=== PATIENT | female | born 2000 | race Caucasian/White ===

== ENCOUNTER 2021-04-18 22:19 | Emergency (ER) | payer OTHER ==
[~2021-04-18] VITALS: Ht 171 cm; Wt 77.9 kg
--- NOTE | 2021-04-18 22:43 | ED Upper Extremity ---
General Chief Complaint: Upper Extremity Stated Complaint: RIGHT MIDDLE FINGER INJURY Nursing Triage Note: Pt reports she was washing a godinez at work and smashed her right middle finger. Swelling noted. Pt took two Aleve at 2030. Source: patient Exam Limitations: no limitations History of Present Illness Date Seen by Provider: Apr 18, 2021 Time Seen by Provider: 22:21 Initial Comments 20-year-old female with no significant past medical history coming in after she smashed her right middle finger with a mixing bowl at work a couple hours ago. She is having moderate constant throbbing pain in the right middle finger. She took Advil which did help with the pain. She is otherwise denying any other acute complaints. Allergies and Home Medications Allergies Coded Allergies: No Known Drug Allergies (Unverified , 04/18/21) Patient Home Medication List Home Medication List Reviewed: Yes Review of Systems Constitutional: No chills EENTM: no symptoms reported Respiratory: no symptoms reported Cardiovascular: no symptoms reported Gastrointestinal: no symptoms reported Genitourinary: no symptoms reported Musculoskeletal: joint pain Skin: no symptoms reported Psychiatric/Neurological: No Symptoms Reported All Other Systems Reviewed Negative Unless Noted: Yes Past Heqkpqf-Yudpea-Sqdekm Hx Patient Social History Tobacco Use?: Yes Past Medical History Surgeries: No Physical Exam Vital Signs Vital Signs - First Documented 04/18/21 22:32 Temp 36.4 Pulse 78 Resp 17 B/P (MAP) 134/77 (96) Pulse Ox 97 O2 Delivery Room Air Capillary Refill : Less Than 3 Seconds Height, Weight, BMI Height: '" Weight: lbs. oz. kg; 26.00 BMI Method: General Appearance: WD/WN, no apparent distress HEENT: PERRL/EOMI, normal ENT inspection, pharynx normal Neck: non-tender, full range of motion, supple, normal inspection Cardiovascular: regular rate, rhythm, no edema, no murmur Respiratory: chest non-tender, lungs clear, normal breath sounds, no respiratory distress, no accessory muscle use Gastrointestinal: normal bowel sounds, non tender, soft; No distended, No guarding Back: normal inspection Shoulder: normal inspection, non-tender, no evidence of injury Elbow/Forearm: normal inspection, non-tender, no evidence of injury Wrist: Yes normal inspection, Yes non-tender, Yes no evidence of injury Hand: swelling (Right middle finger swollen just distal to the PIP joint with some minimal bruising and tenderness to palpation over that area, normal capillary refill and distal sensation) Neurologic/Tendon: normal sensation, normal motor functions Neurologic/Psychiatric: no motor/sensory deficits, alert, normal mood/affect Skin: normal color, warm/dry Lymphatic: no adenopathy Progress/Results/Core Measures Results/Orders My Orders Orders - PEGGY GARCIA MD Finger(S) (04/18/21 22:37) Vital Signs/I&O 04/18/21 22:32 Temp 36.4 Pulse 78 Resp 17 B/P (MAP) 134/77 (96) Pulse Ox 97 O2 Delivery Room Air Blood Pressure Mean: 96 Progress Progress Note : Progress Note 20-year-old female with above history coming in due to right middle finger pain after smashing it at work a couple hours ago. ABCs were intact, as were stable on presentation. Physical exam with some swelling and bruising to the right distal aspect of her finger just distal to the PIP joint. She does have full range of motion of the finger which is reassuring. She already took ibuprofen which helped with her pain. We will get an x-ray to assess for fracture. On my interpretation I do not see any fracture on x-ray. This is likely just soft tissue swelling and bruising which will improve with time and anti- inflammatories. I believe she is stable for discharge. She was sent home with strict return precautions. Diagnostic Imaging Diagonstic Imaging: Xray Plain Films/CT/US/NM/MRI: other (finger) Comments X-ray right middle finger ordered and interpreted by me showing no fracture, dislocation, or malalignment Departure Impression Primary Impression: Crushed finger Qualified Codes: S67.10XA - Crushing injury of unspecified finger(s), initial encounter Disposition: HOME, SELF-CARE Condition: Stable Departure-Patient Inst. Decision time for Depature: 22:53 Referrals: TED SALDIVAR APRN (PCP/Family) Primary Care Physician Patient Instructions: Crush Injury Add. Discharge Instructions: You were seen in the emergency department after you crushed her finger with a mixing bowl. We do not see anything broken on x-ray and you likely just have some bruising. Continue to take ibuprofen 600 mg every 6 hours as needed for pain. You can also ice it. PEGGY GARCIA MD Apr 18, 2021 22:43
[2021-04-18 22:57] VITALS: BP 134/77
--- NOTE | 2021-04-18 23:59 | Diagnostic Imaging Report ---
EXAM: FINGER(S) INDICATION: Right middle finger injury and pain. COMPARISON: None. FINDINGS: No fracture or malalignment. No radiopaque foreign bodies. IMPRESSION: Negative right 3rd finger radiographs. Dictated by: Dictated on workstation # [id number]
== END 2021-04-18 22:57 | disposition home or self-care (01) ==
LOC: ER FS 22:24
DX: S67.192A Crushing injury of right middle finger, initial encounter (principal); Z72.0 Tobacco use; W23.1XXA Caught, crushed, jammed, or pinched between stationary objects, initial encounter; Y99.0 Civilian activity done for income or pay
CPT/HCPCS: 73140

== ENCOUNTER 2021-06-01 09:27 | Outpatient (CLI) | payer BC ==
[~2021-06-01] VITALS: Ht 172.7 cm; Wt 75.0 kg
[2021-06-01 09:31] VITALS: BP 110/68
[2021-06-01] MEDS ORDERED: diphenhydrAMINE 50 MG/ML INJ (BENADRYL) IV PRN (09:45)
[2021-06-01] MEDS ORDERED: ONDANSETRON 4 MG/2 ML (SDV) Z0FRAN IV PRN (09:45)
[2021-06-01] MEDS ORDERED: EPINEPHrine INJECTION 1 MG/ML AMP IM PRN (09:45)
[2021-06-01] MEDS ORDERED: BAMLANIVIMAB 700 MG/ETESEVIMAB 1,400 MG IN NS IV ONE ×3 (09:45)
[2021-06-01] MEDS ORDERED: ACETAMINOPHEN 500 MG TAB (TYLENOL) PO PRN (09:45)
[2021-06-01 10:11] VITALS: BP 94/55
== END 2021-06-01 10:52 ==
LOC: INFUSION 09:27
PROVIDERS: ATTEND Registered Nurse
DX: U07.1 COVID-19 (principal)

== ENCOUNTER 2021-11-14 18:33 | Emergency (ER) | payer BC ==
[~2021-11-14] VITALS: Ht 172.7 cm; Wt 65.9 kg
[2021-11-14 19:04] LABS: BILIRUBIN,URINE NEGATIVE (NEGATIVE); CLARITY,URINE CLEAR; COLOR,URINE YELLOW; GLUCOSE, URINE (UA) NEGATIVE (NEGATIVE); KETONES,URINE NEGATIVE (NEGATIVE); LEUKOCYTE ESTERASE ,URINE NEGATIVE (NEGATIVE); NITRITE,URINE NEGATIVE (NEGATIVE); PROTEIN,URINE NEGATIVE (NEGATIVE)
--- NOTE | 2021-11-14 19:06 | ED Cardiac General ---
History of Present Illness General Chief Complaint: Cardiac/General Problems Stated Complaint: CP History of Present Illness Date Seen by Provider: Nov 14, 2021 Time Seen by Provider: 18:50 Initial Comments 20-year-old female is here with complaints of left-sided chest pain near her axilla which began today while she was at work at [employer]. Pain is 3/10 and lasted for couple minutes. . No pain in the ER. 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 Denies recent fever or respiratory illness, nausea and vomiting, palpitations, headache, SOB, abdominal pain, dysuria. Patient has a family history of her mother having mitral valve prolapse, and as a child she had a functional heart murmur. Denies using drugs or alcohol and does not smoke. Allergies and Home Medications Allergies Coded Allergies: ketorolac (Unverified Adverse Reaction, Unknown, 11/14/21) ?? patient and mother convinced chest pain started after having Toradol shot a few hours earlier Patient Home Medication List Home Medication List Reviewed: Yes No Active Prescriptions or Reported Meds Review of Systems Review of Systems Constitutional: no symptoms reported EENTM: No Symptoms Reported Respiratory: No Symptoms Reported Cardiovascular: Chest Pain Gastrointestinal: No Symptoms Reported Genitourinary: No Symptoms Reported Musculoskeletal: no symptoms reported Skin: no symptoms reported Psychiatric/Neurological: No Symptoms Reported Endocrine: No Symptoms Reported Hematologic/Lymphatic: No Symptoms Reported Past Lzofuri-Jolvhl-Qndvrj Hx Past Medical History Surgeries: No Physical Exam Vital Signs Capillary Refill : Height, Weight, BMI Height: '" Weight: lbs. oz. kg; 26.00 BMI Method: General Appearance: No Apparent Distress HEENT: PERRL/EOMI Neck: Full Range of Motion, Normal Inspection, Non Tender Respiratory: Chest Non Tender, Lungs Clear, Normal Breath Sounds Cardiovascular: Regular Rate, Rhythm, No Edema, Other (no palpable points of tenderness on chest wall. ) Gastrointestinal: No Organomegaly, No Pulsatile Mass, Non Tender, Soft Extremity: Normal Range of Motion Neurologic/Psychiatric: Alert, Oriented x3, No Motor/Sensory Deficits, Normal Mood/Affect Skin: Normal Color Progress/Results/Core Measures Results/Orders Lab Results Laboratory Tests Test 11/14/21 18:37 11/14/21 19:00 Range/Units Urine Color YELLOW Urine Clarity CLEAR Urine pH 6.0 5-9 Urine Specific [place] >=1.030 1.016-1.022 Urine Protein NEGATIVE NEGATIVE Urine Glucose (UA) NEGATIVE NEGATIVE Urine Ketones NEGATIVE NEGATIVE Urine Nitrite NEGATIVE NEGATIVE Urine Bilirubin NEGATIVE NEGATIVE Urine Urobilinogen 2.0 < = 1.0 MG/DL Urine Leukocyte Esterase NEGATIVE NEGATIVE Urine RBC (Auto) NEGATIVE NEGATIVE Urine RBC NONE /HPF Urine WBC 2-5 /HPF Urine Squamous Epithelial Cells 2-5 /HPF Urine Crystals NONE /LPF Urine Bacteria FEW H /HPF Urine Casts NONE /LPF Urine Mucus SMALL H /LPF Urine Culture Indicated YES Urine Opiates Screen NEGATIVE NEGATIVE Urine Oxycodone Screen NEGATIVE NEGATIVE Urine Methadone Screen NEGATIVE NEGATIVE Urine Propoxyphene Screen NEGATIVE NEGATIVE Urine Barbiturates Screen NEGATIVE NEGATIVE Ur Tricyclic Antidepressants Screen NEGATIVE NEGATIVE Urine Phencyclidine Screen NEGATIVE NEGATIVE Urine Amphetamines Screen NEGATIVE NEGATIVE Urine Methamphetamines Screen NEGATIVE NEGATIVE Urine Benzodiazepines Screen NEGATIVE NEGATIVE Urine Cocaine Screen NEGATIVE NEGATIVE Urine Cannabinoids Screen POSITIVE H NEGATIVE White Blood Count 8.0 4.3-11.0 10^3/uL Red Blood Count 4.26 3.80-5.11 10^6/uL Hemoglobin 11.7 11.5-16.0 g/dL Hematocrit 35 35-52 % Mean Corpuscular Volume 82 80-99 fL Mean Corpuscular Hemoglobin 28 25-34 pg Mean Corpuscular Hemoglobin Concent 33 32-36 g/dL Red Cell Distribution Width 14.0 10.0-14.5 % Platelet Count 264 130-400 10^3/uL Mean Platelet Volume 10.5 9.0-12.2 fL Immature Granulocyte % (Auto) 0 % Neutrophils (%) (Auto) 59 42-75 % Lymphocytes (%) (Auto) 31 12-44 % Monocytes (%) (Auto) 6 0-12 % Eosinophils (%) (Auto) 3 0-10 % Basophils (%) (Auto) 0 0-10 % Neutrophils # (Auto) 4.7 1.8-7.8 10^3/uL Lymphocytes # (Auto) 2.5 1.0-4.0 10^3/uL Monocytes # (Auto) 0.5 0.0-1.0 10^3/uL Eosinophils # (Auto) 0.2 0.0-0.3 10^3/uL Basophils # (Auto) 0.0 0.0-0.1 10^3/uL Immature Granulocyte # (Auto) 0.0 0.0-0.1 10^3/uL Sodium Level 141 135-145 MMOL/L Potassium Level 3.9 3.6-5.0 MMOL/L Chloride Level 104 98-107 MMOL/L Carbon Dioxide Level 25 21-32 MMOL/L Anion Gap 12 5-14 MMOL/L Blood Urea Nitrogen 17 7-18 MG/DL Creatinine 0.84 0.60-1.30 MG/DL Estimat Glomerular Filtration Rate 102 BUN/Creatinine Ratio 20 Glucose Level 92 70-105 MG/DL Calcium Level 9.5 8.5-10.1 MG/DL Corrected Calcium 8.5-10.1 MG/DL Magnesium Level 2.1 1.6-2.4 MG/DL Total Bilirubin 0.3 0.1-1.0 MG/DL Aspartate Amino Transf (AST/SGOT) 11 5-34 U/L Alanine Aminotransferase (ALT/SGPT) 9 0-55 U/L Alkaline Phosphatase 70 40-136 U/L Troponin I < 0.30 <0.30 NG/ML Total Protein 7.3 6.4-8.2 GM/DL Albumin 4.6 H 3.2-4.5 GM/DL Lipase 39 8-78 U/L Serum Test, Qualitative NEGATIVE NEGATIVE Serum Alcohol < 10 <10 MG/DL My Orders Orders - MP MITCHELL MD Ekg Tracing (11/14/21 18:47) Alcohol (11/14/21 18:53) Cbc With Automated Diff (11/14/21 18:53) Comprehensive Metabolic Panel (11/14/21 18:53) Drug Screen Stat (Urine) (11/14/21 18:53) Hcg,Qualitative Serum (11/14/21 18:53) Lipase (11/14/21 18:53) Magnesium (11/14/21 18:53) Ua Culture If Indicated (11/14/21 18:53) Troponin I Fs (11/14/21 18:55) Chest 1 View Ap/Pa Only (11/14/21 19:06) Urine Culture (11/14/21 18:37) Progress Progress Note : Progress Note 1. CHEST PAIN: ACUTE COSTOCHONDRITIS/ MARIJUANA ABUSE - CXR: normal - Troponin/ EKG normal - LAbs normal - UA/ UDS no infection/ Marijuana positive - Follow up with PCP in thenext 3 days - Stay hydrated - Ibuprofen for 7 days . take after eating food. - Stop using marijuana -The patient was seen in the ED, and treated appropriately to presentation at a specific point in time. Patient is informed that there is a possibility that disease and illness can evolve and change in acuity rapidly or slowly after patient is discharged from the ER. Precautionary advice given to the patient for immediate return to ER if symptoms worsen or do not resolve, and to seek emergency care sooner rather than later. Pt also advised on the importance of PCP follow up and compliance with management and follow up plan with PCP and/or specialist, as this is part of the management plan. Pt verbally expressed understanding. Diagnostic Imaging Diagonstic Imaging: Xray Plain Films/CT/US/NM/MRI: chest Departure Impression Primary Impression: Acute costochondritis Additional Impression: Marijuana abuse Disposition: HOME, SELF-CARE Condition: Stable Departure-Patient Inst. Referrals: TED SALDIVAR APRN (PCP/Family) Primary Care Physician Patient Instructions: Costochondritis (DC), Marijuana Use and Addiction Add. Discharge Instructions: - Follow up with PCP in thenext 3 days - Stay hydrated - Ibuprofen for 7 days . take after eating food. - Stop using marijuana All discharge instructions reviewed with patient and/or family. Voiced understanding. Scripts No Active Prescriptions or Reported Meds Work/School Note: Work Release Form Date Seen in the Emergency Department: Nov 14, 2021 Return to Work: Nov 16, 2021 Other Restrictions Listed Below: no heavy lifting for 7 days MP MITCHELL MD Nov 14, 2021 19:06
[2021-11-14 19:09] LABS: BASOPHILS % (AUTO) 0 % (0-10); EOSINOPHILS # (AUTO) 0.2 10^3/uL (0.0-0.3); EOSINOPHILS % (AUTO) 3 % (0-10); HEMATOCRIT 35 % (35-52); HEMOGLOBIN 11.7 g/dL (11.5-16.0); LYMPHOCYTES # (AUTO) 2.5 10^3/uL (1.0-4.0); LYMPHOCYTES % (AUTO) 31 % (12-44); MEAN CORPUSCULAR HEMOGLOBIN 28 pg (25-34); MEAN CORPUSCULAR HGB CONC 33 g/dL (32-36); MEAN CORPUSCULAR VOLUME 82 fL (80-99); MEAN PLATELET VOLUME 10.5 fL (9.0-12.2); MONOCYTES # (AUTO) 0.5 10^3/uL (0.0-1.0); MONOCYTES % (AUTO) 6 % (0-12); NEUTROPHILS # (AUTO) 4.7 10^3/uL (1.8-7.8); NEUTROPHILS % (AUTO) 59 % (42-75); PLATELET COUNT 264 10^3/uL (130-400)
[2021-11-14 19:16] LABS: BACTERIA,URINE FEW /HPF
[2021-11-14 19:18] LABS: AMPHETAMINE SCREEN, URINE NEGATIVE (NEGATIVE); BARBITURATE SCREEN URINE NEGATIVE (NEGATIVE); BENZODIAZEPINES SCREEN URINE NEGATIVE (NEGATIVE); CANNABINOID SCREEN, URINE POSITIVE (NEGATIVE); COCAINE SCREEN URINE NEGATIVE (NEGATIVE); METHADONE STAT NEGATIVE (NEGATIVE); OPIATE SCREEN URINE NEGATIVE (NEGATIVE); OXYCODONE STAT NEGATIVE (NEGATIVE); PROPOXYPHENE STAT NEGATIVE (NEGATIVE); TRICYCLIC ANTIDEPRESSANTS SCRE NEGATIVE (NEGATIVE)
[2021-11-14 19:43] LABS: ALANINE AMINOTRANSFERASE 9 U/L (0-55); ALKALINE PHOSPHATASE 70 U/L (40-136); BILIRUBIN,TOTAL 0.3 MG/DL (0.1-1.0); BUN/CREATININE RATIO 20; CALCIUM 9.5 MG/DL (8.5-10.1); CARBON DIOXIDE 25 MMOL/L (21-32); CHLORIDE 104 MMOL/L (98-107); CREATININE SERUM 0.84 MG/DL (0.60-1.30); GFR ESTIMATED 102; GLUCOSE 92 MG/DL (70-105); MAGNESIUM 2.1 MG/DL (1.6-2.4); POTASSIUM 3.9 MMOL/L (3.6-5.0); SODIUM 141 MMOL/L (135-145)
[2021-11-14 19:44] LABS: ALBUMIN 4.6 GM/DL (3.2-4.5); LIPASE 39 U/L (8-78); TOTAL PROTEIN 7.3 GM/DL (6.4-8.2)
[2021-11-14 19:59] VITALS: BP 105/64
--- NOTE | 2021-11-14 19:59 | Diagnostic Imaging Report ---
CLINICAL INDICATION: Patient with chest pain EXAM: Chest x-ray PA view only. COMPARISON: None. FINDINGS: Lungs/pleura: Lungs are clear. There is no pneumothorax. There is no pleural effusion. Mediastinum: Unremarkable. Pulmonary vasculature: Unremarkable. Heart: Unremarkable. Bones/extrathoracic soft tissue: Unremarkable. IMPRESSION: There is no radiographic evidence of acute cardiopulmonary process. Dictated by: Dictated on workstation # [id number]
== END 2021-11-14 19:59 | disposition home or self-care (01) ==
LOC: EDUNIT# 18:33 → ER FS 18:35
DX: M94.0 Chondrocostal junction syndrome [Tietze] (principal); F12.10 Cannabis abuse, uncomplicated
CPT/HCPCS: 36415; 71045; 80053; 80306; 81000; 83690; 83735; 84484; 84703 ×2; 85025; 87088; 93005; 99284; G0480; 80320

== ENCOUNTER 2021-11-30 16:07 | Emergency (ER) | payer OTHER, BC ==
[~2021-11-30] VITALS: Ht 172 cm; Wt 63.0 kg
[2021-11-30 16:17] VITALS: BP 110/69
--- NOTE | 2021-11-30 16:40 | ED Upper Extremity ---
General Chief Complaint: Laceration Stated Complaint: WC,L MIDDLE FINGER LAC Nursing Triage Note: Patient has ambulated to ER 1 with cc of a laceration on her left hand middle finger. She accidently cut her finger on an open can lid at word about 1545 today. Work sent her to ER for evaluation. Source: patient History of Present Illness Date Seen by Provider: Nov 30, 2021 Time Seen by Provider: 16:11 Initial Comments 21-year-old female presents with laceration to her left middle finger. 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 She has bleeding controlled with pressure. She states she had a tetanus booster within the last 5 to 6 years. She denies any numbness or tingling. She has no other injuries. Location Injury Occurred: [employer] Onset: just prior to arrival Severity: mild Pain/Injury Location: left 3rd finger Method of Injury: incised Modifying Factors: Worse With Movement Allergies and Home Medications Allergies Coded Allergies: ketorolac (Unverified Adverse Reaction, Unknown, 11/14/21) ?? patient and mother convinced chest pain started after having Toradol shot a few hours earlier Patient Home Medication List Home Medication List Reviewed: Yes No Active Prescriptions or Reported Meds Review of Systems Constitutional: No chills, No fever EENTM: no symptoms reported Respiratory: no symptoms reported Cardiovascular: no symptoms reported Gastrointestinal: no symptoms reported Genitourinary: no symptoms reported Musculoskeletal: no symptoms reported Skin: see HPI Psychiatric/Neurological: Denies Numbness, Denies Paresthesia Past Xdelbfk-Cnvgjm-Diokxz Hx Patient Social History Tobacco Use?: No Use of E-Cig and/or Vaping dev: Yes Substance use?: No Alcohol Use?: No Pt feels they are or have been: No Past Medical History Surgery/Hospitalization HX: asthma, heart murmur Surgeries: No Physical Exam Vital Signs Vital Signs - First Documented 11/30/21 16:17 Temp 36.8 Pulse 73 Resp 16 B/P (MAP) 110/69 (83) Pulse Ox 98 O2 Delivery Room Air Capillary Refill : Height, Weight, BMI Height: '" Weight: lbs. oz. kg; 21.00 BMI Method: General Appearance: WD/WN, no apparent distress Cardiovascular: normal peripheral pulses Hand: Left, laceration (Distal phalanx of the left middle finger), soft tissue tenderness (At the site of the laceration) Neurologic/Tendon: normal sensation, normal motor functions Neurologic/Psychiatric: social services manager II-XII nml as tested, no motor/sensory deficits, alert, normal mood/affect, oriented x 3 Skin: normal color, warm/dry Procedures/Interventions Wound Location: Upper Extremities (Left middle finger distal phalanx) Wound Length (cm): 0.5 Wound's Depth, Shape: linear, sub Q Wound Explored: clean Other Closure Supply: Steri Strip 1/2", Mastisol, Wound Adhesive Progress After obtaining verbal consent the wound was cleaned with sterile water and chlorhexidine scrub soap. Bleeding is controlled. Wound edges were approximated using tissue adhesive. Then using Mastisol and 1/2 inch Steri- Strip that was cut half lengthwise to make it more of 1/4 inch Steri-Strip the wound was reinforced with the Steri-Strip. Patient tolerated procedure well without any immediate complication. There was no continued bleeding. Will patient have patient use the finger splint that she presented with as well as a sterile clean dry dressing. Counseled on follow-up and return precautions stressed importance of not using any oily or greasy lotions or substances that would make the glue come off early. No soaking her hand in water. Progress/Results/Core Measures Results/Orders Vital Signs/I&O 11/30/21 16:17 Temp 36.8 Pulse 73 Resp 16 B/P (MAP) 110/69 (83) Pulse Ox 98 O2 Delivery Room Air Blood Pressure Mean: 83 Progress Progress Note : Progress Note Wound edges were approximated using tissue adhesive and a Steri-Strip reinforced with Mastisol. Departure Impression Primary Impression: Laceration without foreign body of left middle finger without damage to nail, initial encounter Disposition: 01 HOME, SELF-CARE Condition: Stable Departure-Patient Inst. Decision time for Depature: 16:41 Referrals: TED SALDIVAR APRN (PCP/Family) Primary Care Physician Patient Instructions: Skin Glue for Minor Cuts, Laceration Repair With Glue ED Add. Discharge Instructions: Keep finger clean and dry for first 24 hours. Use the finger splint to keep the wound covered and protect it from hitting things or possibly being torn open. If there are further concerns check with Work Comp clinic or as directed by your HR department All discharge instructions reviewed with patient and/or family. Voiced understanding. Scripts No Active Prescriptions or Reported Meds ANDREW MHAMOOD MD Nov 30, 2021 16:39
== END 2021-11-30 16:50 | disposition home or self-care (01) ==
LOC: EDUNIT# 16:07 → ER FS 16:09
DX: S61.213A Laceration without foreign body of left middle finger without damage to nail, initial encounter (principal); F17.290 Nicotine dependence, other tobacco product, uncomplicated; W26.8XXA Contact with other sharp object(s), not elsewhere classified, initial encounter; Y92.59 Other trade areas as the place of occurrence of the external cause; Y99.0 Civilian activity done for income or pay
CPT/HCPCS: 12041

== ENCOUNTER 2022-06-17 19:38 | Emergency (ER) | payer BC, OTHER ==
[~2022-06-17] VITALS: Ht 172.7 cm; Wt 61.2 kg
[2022-06-17 19:51] VITALS: BP 106/66
[2022-06-17] MEDS ORDERED: IBUPROFEN 600 MG (MOTRIN) TAB PO STA (19:54)
[2022-06-17 19:57] LABS: BILIRUBIN,URINE NEGATIVE (NEGATIVE); CLARITY,URINE CLEAR; COLOR,URINE YELLOW; GLUCOSE, URINE (UA) NEGATIVE (NEGATIVE); KETONES,URINE NEGATIVE (NEGATIVE); LEUKOCYTE ESTERASE ,URINE NEGATIVE (NEGATIVE); NITRITE,URINE NEGATIVE (NEGATIVE); PH,URINE 5.5 (5-9); PROTEIN,URINE NEGATIVE (NEGATIVE)
--- NOTE | 2022-06-17 20:00 | ED General ---
General Chief Complaint: Chest Wall Stated Complaint: LEFT SIDE PAIN Source of Information: Patient History of Present Illness Date Seen by Provider: Jun 17, 2022 Time Seen by Provider: 19:42 Initial Comments 21-year-old female presenting with complaints of pain to her left lateral and lower chest wall. She states that she was at work for [employer] and was carrying a stepladder that she caught against the wall. This caused the stepladder to hit against her left chest wall. She has had pain in that area since this happened. She states that she has had prior bruise or break to the rib in that same area in the past. She had taken Tylenol right after this happened. The injury occurred approximately 1 hour prior to arrival. She denies hitting her head or losing consciousness or any other injuries. She states her last menstrual period was on May 22. She has not tried applying ice or any other measures for controlling the pain. She was unsure if this would be a work comp case or not. Location Injury Occurred: [place] Timing/Duration: 1 Hour Severity: Mild Modifying Factors: worse with Movement Associated Systoms: No Cough, No Diaphoresis, No Fever/Chills, No Headaches, No Loss of Appetite, No Malaise, No Nausea/Vomiting, No Rash, No Seizure, No Shortness of Air, No Syncope, No Weakness Allergies and Home Medications Allergies Coded Allergies: ketorolac (Unverified Adverse Reaction, Unknown, 11/14/21) ?? patient and mother convinced chest pain started after having Toradol shot a few hours earlier Patient Home Medication List Home Medication List Reviewed: Yes No Active Prescriptions or Reported Meds Review of Systems Review of Systems Constitutional: No chills, No diaphoresis, No fever EENTM: no symptoms reported Respiratory: no symptoms reported Cardiovascular: see HPI Gastrointestinal: no symptoms reported Genitourinary: no symptoms reported Musculoskeletal: no symptoms reported Skin: No change in color Psychiatric/Neurological: Denies Numbness, Denies Paresthesia Hematologic/Lymphatic: Denies Blood Clots, Denies Easy Bleeding, Denies Easy Bruising Past Iyrxaut-Plabrx-Usarhc Hx Patient Social History Tobacco Use?: Yes Substance use?: No Alcohol Use?: No Pt feels they are or have been: No Past Medical History Surgery/Hospitalization HX: asthma, heart murmur Surgeries: No Physical Exam Vital Signs Vital Signs - First Documented 06/17/22 19:51 Temp 36.9 Pulse 86 Resp 16 B/P (MAP) 106/66 (79) Pulse Ox 99 O2 Delivery Room Air Capillary Refill : Height, Weight, BMI Height: '" Weight: lbs. oz. kg; 21.00 BMI Method: General Appearance: No Apparent Distress, WD/WN HEENT: PERRL/EOMI, Pharynx Normal Neck: Full Range of Motion, Normal Inspection, Non Tender, Supple Respiratory: No Chest Non Tender (tender to palpation left lateral lower ribs without crepitus or step off); Lungs Clear, Normal Breath Sounds, No Accessory Muscle Use, No Respiratory Distress Cardiovascular: Regular Rate, Rhythm, Normal Peripheral Pulses Gastrointestinal: Normal Bowel Sounds, No Pulsatile Mass, Non Tender, Soft Extremity: Normal Capillary Refill, Normal Inspection, No Pedal Edema Neurologic/Psychiatric: Alert, Oriented x3, No Motor/Sensory Deficits, 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 as Tested Skin: Normal Color, Warm/Dry; No Ecchymosis Progress/Results/Core Measures Suspected Sepsis SIRS Temperature: Pulse: Respiratory Rate: Blood Pressure / Mean: Results/Orders Lab Results Laboratory Tests Test 06/17/22 19:45 Range/Units Urine Color YELLOW Urine Clarity CLEAR Urine pH 5.5 5-9 Urine Specific [place] >=1.030 1.016-1.022 Urine Protein NEGATIVE NEGATIVE Urine Glucose (UA) NEGATIVE NEGATIVE Urine Ketones NEGATIVE NEGATIVE Urine Nitrite NEGATIVE NEGATIVE Urine Bilirubin NEGATIVE NEGATIVE Urine Urobilinogen 0.2 < = 1.0 MG/DL Urine Leukocyte Esterase NEGATIVE NEGATIVE Urine RBC (Auto) NEGATIVE NEGATIVE Urine RBC NONE /HPF Urine WBC 2-5 /HPF Urine Squamous Epithelial Cells 10-25 H /HPF Urine Crystals NONE /LPF Urine Bacteria LARGE H /HPF Urine Casts NONE /LPF Urine White Blood Cell Casts RARE H /LPF Urine Mucus LARGE H /LPF Urine Culture Indicated YES My Orders Orders - ANDREW MAHMOOD MD Ua Culture If Indicated (06/17/22 19:47) Urine Bedside (06/17/22 19:47) Ribs/Unilateral With Chest (06/17/22 19:53) Ice: Apply To Affected Area (06/17/22 19:53) Ibuprofen Tablet (Motrin Tablet) (06/17/22 19:54) Urine Culture (06/17/22 19:45) Vital Signs/I&O 06/17/22 19:51 Temp 36.9 Pulse 86 Resp 16 B/P (MAP) 106/66 (79) Pulse Ox 99 O2 Delivery Room Air Capillary Refill : Progress Note #1: Progress Note Potential diagnosis of left rib fracture, rib contusion, pneumothorax, hemothorax, chest wall contusion. Since she has had unprotected intercourse since her last menstrual period will obtain urinalysis and a urine t est. Provided those are negative we will administer ibuprofen 600 mg by mouth x1 for pain. Ice pack to the left ribs to help with pain and inflammation. Order x-rays of the left ribs and chest. Progress Note #2: Time: 19:59 Progress Note Urine test was negative. Urinalysis shows elevated specific gravity of greater than 1.030 to go some dehydration. She had some mucus with bacteria and epithelial cells. No Nit, LE, blood. She had few WBC casts and 2-5 WBC on microscopic exam. Culture will be reflexed. Will review her Chest xray and rib films once images are available. As she had no step off deformity of ribs, clear and equal breath sounds with no crepitus she likely does not have a fracture. Anticipate discharge with symptomatic care of over the counter acetaminophen and/or ibuprofen for pain and inflammation. Use ice 15-20 minutes every few hours as needed for pain and inflammation. Check back with clinic if worsening or not improving. Progress Note #3: Time: 20:08 Progress Note On my personal interpretation and review of her 1 view chest and left rib films I did not appreciate any acute fracture or pneumothorax or hemothorax or effusion. Will plan on proceeding with discharge as discussed above. Will review the radiology report when it is available. 2047 I reviewed the radiologist report on CXR with left ribs and they did not see any acute process either. Diagnostic Imaging Diagonstic Imaging: Xray Plain Films/CT/US/NM/MRI: chest (And left ribs) Comments [facility], [place] NAME: KUN IBARRA [facility] REC#: [id number] PT STATUS: DEP ER : 2000 PHYSICIAN: ANDREW MAHMOOD MD ADMIT DATE: 06/17/22/ER FS Draft Date of Exam:06/17/22 RIBS/UNILATERAL WITH CHEST INDICATION: Chest pain and left rib pain. EXAMINATION: PA chest was obtained as well as AP and oblique views of the left ribs. Heart and mediastinal silhouette are normal in appearance. The lungs are clear. There is no pneumothorax or pleural fluid. There is no overt bony abnormality in the chest. AP and oblique views of the left ribs demonstrate no overt fracture. IMPRESSION: Negative chest and left ribs. Dictated on workstation # [id number] Dict: 06/17/222029 Trans: 06/17/222036 [facility] [id number] Interpreted by: JALEN IBARRA MD Electronically signed by: Reviewed: Reviewed by Me Departure Impression Primary Impression: Contusion of left chest wall Qualified Codes: S20.212A - Contusion of left front wall of thorax, initial encounter Additional Impression: Contusion of rib on left side Qualified Codes: S20.212A - Contusion of left front wall of thorax, initial encounter Disposition: HOME, SELF-CARE Condition: Stable Departure-Patient Inst. Decision time for Depature: 20:10 Referrals: TED SALDIVAR APRN (PCP/Family) Primary Care Physician Patient Instructions: Minor Contusion ED, Rib Fracture or Bruised Rib ED Add. Discharge Instructions: Ice 20 to 30 minutes every few hours as needed for pain and inflammation. May continue to use [id number]-[id number] acetaminophen and ibuprofen for pain. The ibuprofen will do more to help with inflammation and bruising than the acetaminophen but they both work well for pain. If having continued or worsening pain and symptoms check back with your primary care provider. All discharge instructions reviewed with patient and/or family. Voiced understanding. Scripts No Active Prescriptions or Reported Meds Work/School Note: Work Release Form Date Seen in the Emergency Department: Jun 17, 2022 Return to Work: Jun 18, 2022 Restrictions: No Restrictions ANDREW MAHMOOD MD Jun 17, 2022 20:00
[2022-06-17 20:02] LABS: BACTERIA,URINE LARGE /HPF; WHITE BLOOD CELL CASTS, URINE RARE /LPF
--- NOTE | 2022-06-17 20:38 | Diagnostic Imaging Report ---
INDICATION: Chest pain and left rib pain. EXAMINATION: PA chest was obtained as well as AP and oblique views of the left ribs. Heart and mediastinal silhouette are normal in appearance. The lungs are clear. There is no pneumothorax or pleural fluid. There is no overt bony abnormality in the chest. AP and oblique views of the left ribs demonstrate no overt fracture. IMPRESSION: Negative chest and left ribs. Dictated by: Dictated on workstation # [id number]
== END 2022-06-17 20:14 | disposition home or self-care (01) ==
LOC: EDUNIT# 19:38 → ER FS 19:42
DX: S20.212A Contusion of left front wall of thorax, initial encounter (principal); Z28.310 Unvaccinated for COVID-19; W22.01XA Walked into wall, initial encounter; Y92.59 Other trade areas as the place of occurrence of the external cause; Y99.0 Civilian activity done for income or pay
CPT/HCPCS: 71101; 81000; 84703; 87088

== ENCOUNTER 2022-06-22 20:29 | Emergency (ER) | payer BC ==
[~2022-06-22] VITALS: Ht 172.7 cm; Wt 62.2 kg
--- NOTE | 2022-06-22 20:50 | ED GU-Female ---
General Chief Complaint: - Reproductive Stated Complaint: MENSTRUAL CRAMPS Source: patient Exam Limitations: no limitations History of Present Illness Date Seen by Provider: Jun 22, 2022 Time Seen by Provider: 20:36 Initial Comments 21-year-old female with no pertinent past medical history coming in due to severe abdominal cramping while day 3 of menstruation. Has a strong family history of endometriosis, she is unsure if she has it. She states she has been going through more pads than she typically would. Went to the clinic earlier today and was diagnosed with a "mild" UTI and given a 3-day prescription for Bactrim as well as ibuprofen 800s which she has not filled. Denies any fever, unusual vaginal discharge, dysuria, nausea, vomiting, diarrhea, weakness, numbness, chest pain, shortness of breath, palpitations, or any other concerns. Of note, she says she had a negative test last week, and had a negative test again today at the walk-in clinic. Allergies and Home Medications Allergies Coded Allergies: No Known Drug Allergies (Unverified , 06/22/22) Patient Home Medication List Home Medication List Reviewed: Yes No Active Prescriptions or Reported Meds Review of Systems Review of Systems Constitutional: No fever EENTM: no symptoms reported Respiratory: no symptoms reported Cardiovascular: no symptoms reported Gastrointestinal: no symptoms reported Genitourinary: see HPI Musculoskeletal: no symptoms reported Skin: no symptoms reported Psychiatric/Neurological: No Symptoms Reported Endocrine: No Symptoms Reported Past Mbboktp-Tvwfud-Ldbuvz Hx Patient Social History Tobacco Use?: Yes Past Medical History Surgery/Hospitalization HX: asthma, heart murmur Surgeries: No Physical Exam Vital Signs Capillary Refill : Height, Weight, BMI Height: '" Weight: lbs. oz. kg; 20.00 BMI Method: General Appearance: WD/WN, no apparent distress HEENT: PERRL/EOMI, normal ENT inspection, pharynx normal Neck: non-tender, full range of motion, supple, normal inspection Cardiovascular: regular rate, rhythm, no edema, no murmur Respiratory: chest non-tender, lungs clear, normal breath sounds, no respiratory distress, no accessory muscle use Gastrointestinal: normal bowel sounds, non tender, soft; No distended, No guarding, No rebound Pelvic: normal external exam, other (Some bleeding coming from the cervical os, but to quantify it would be about a drop of blood every several seconds) Back: normal inspection, no CVA tenderness Extremities: normal range of motion, non-tender, normal inspection, no pedal edema, no calf tenderness, normal capillary refill Neurologic/Psychiatric: no motor/sensory deficits, alert, normal mood/affect Skin: normal color, warm/dry Lymphatic: no adenopathy Progress/Results/Core Measures Suspected Sepsis SIRS Temperature: Pulse: Respiratory Rate: Laboratory Tests 06/22/22 21:00: White Blood Count 8.4 Blood Pressure / Mean: Laboratory Tests 06/22/22 21:00: Platelet Count 266 Results/Orders Lab Results Laboratory Tests Test 06/22/22 21:00 Range/Units White Blood Count 8.4 4.3-11.0 10^3/uL Red Blood Count 4.37 3.80-5.11 10^6/uL Hemoglobin 12.3 11.5-16.0 g/dL Hematocrit 36 35-52 % Mean Corpuscular Volume 82 80-99 fL Mean Corpuscular Hemoglobin 28 25-34 pg Mean Corpuscular Hemoglobin Concent 34 32-36 g/dL Red Cell Distribution Width 13.5 10.0-14.5 % Platelet Count 266 130-400 10^3/uL Mean Platelet Volume 10.8 9.0-12.2 fL Immature Granulocyte % (Auto) 0 % Neutrophils (%) (Auto) 58 42-75 % Lymphocytes (%) (Auto) 36 12-44 % Monocytes (%) (Auto) 5 0-12 % Eosinophils (%) (Auto) 0 0-10 % Basophils (%) (Auto) 1 0-10 % Neutrophils # (Auto) 4.8 1.8-7.8 10^3/uL Lymphocytes # (Auto) 3.0 1.0-4.0 10^3/uL Monocytes # (Auto) 0.4 0.0-1.0 10^3/uL Eosinophils # (Auto) 0.0 0.0-0.3 10^3/uL Basophils # (Auto) 0.0 0.0-0.1 10^3/uL Immature Granulocyte # (Auto) 0.0 0.0-0.1 10^3/uL My Orders Orders - PEGGY GARCIA MD Ketorolac Injection (Toradol Injection) (06/22/22 21:00) Cbc With Automated Diff (06/22/22 20:47) Medications Given in ED Current Medications Medications Dose Ordered Sig/Shady Route Start Time Stop Time Status Last Admin Dose Admin Ketorolac Tromethamine 15 mg ONCE ONCE IM 06/22/22 21:00 06/22/22 21:01 DC 06/22/22 21:04 15 MG Vital Signs/I&O Capillary Refill : Progress Note : Progress Note 21-year-old female presenting for significant cramping pain while menstruating. ABCs were intact and vitals were stable on presentation. Physical exam with a soft and nontender abdomen. Pelvic exam she truly had minimal bleeding that was not clinically significant. Labs were drawn and her CBC was significant for a normal hemoglobin as well as normal platelets. She had a huhxk-je-hzpr test done earlier today which was negative so it was not repeated. She was given IM Toradol for pain control. Urinalysis done earlier today so also was not repeated. Clinically she is menstruating, and although having heavier bleeding for her, its not clinically concerning. Given the worsening cramps and family history of endometriosis, its very possible. Given her negative test last week and today, ectopic highly unlikely. She did not have any concerning vaginal discharge making PID unlikely. I believe she is otherwise stable for discharge with outpatient follow-up. She was sent home with strict return precautions. Departure Impression Primary Impression: Menorrhagia Qualified Codes: N92.0 - Excessive and frequent menstruation with regular cycle Disposition: HOME, SELF-CARE Condition: Stable Departure-Patient Inst. Decision time for Depature: 21:10 Referrals: JEANNA GUEVARA ANNA K APRN (PCP) Primary Care Physician Patient Instructions: Heavy Periods ED Add. Discharge Instructions: You are having a heavy period, however on exam the bleeding is not a significant amount that would cause you to hemorrhage and it does appear like your body is compensating well for this. Your lab work is reassuring. I recommend considering some type of control or implanted control to help with the heavier periods which can help with the pain and the bleeding. Your primary physician can do this or you can call Dr. Guevara, who is the MEDICAL OFFICE COORDINATOR in [place]. His number is in this paperwork. It is very possible you could have endometriosis which would be a cause of worsening pain and bleeding during your period. Scripts No Active Prescriptions or Reported Meds Work/School Note: School/Childcare Release, Date Seen in the Emergency Department: Jun 22, 2022 Time Dismissed from Emergency Department: 21:12 Return to School: Jun 23, 2022 Restrictions: No Restrictions Work Release Form Date Seen in the Emergency Department: Jun 22, 2022 Return to Work: Jun 23, 2022 Restrictions: No Restrictions PEGGY GARCIA MD Jun 22, 2022 20:50
[2022-06-22] MEDS ORDERED: KETOROLAC 15 MG/ML VIAL IM ONE (21:00)
[2022-06-22 21:04] LABS: BASOPHILS % (AUTO) 1 % (0-10); EOSINOPHILS % (AUTO) 0 % (0-10); HEMATOCRIT 36 % (35-52); HEMOGLOBIN 12.3 g/dL (11.5-16.0); LYMPHOCYTES % (AUTO) 36 % (12-44); MEAN CORPUSCULAR HEMOGLOBIN 28 pg (25-34); MEAN CORPUSCULAR HGB CONC 34 g/dL (32-36); MEAN CORPUSCULAR VOLUME 82 fL (80-99); MEAN PLATELET VOLUME 10.8 fL (9.0-12.2); MONOCYTES # (AUTO) 0.4 10^3/uL (0.0-1.0); MONOCYTES % (AUTO) 5 % (0-12); NEUTROPHILS # (AUTO) 4.8 10^3/uL (1.8-7.8); NEUTROPHILS % (AUTO) 58 % (42-75); PLATELET COUNT 266 10^3/uL (130-400); WHITE BLOOD COUNT 8.4 10^3/uL (4.3-11.0)
[2022-06-22 21:18] VITALS: BP 116/70
== END 2022-06-22 21:18 | disposition home or self-care (01) ==
LOC: EDUNIT# 20:29 → ER FS 20:31
DX: N92.0 Excessive and frequent menstruation with regular cycle (principal); Z28.310 Unvaccinated for COVID-19
CPT/HCPCS: 36415; 85025

== ENCOUNTER 2022-12-29 19:50 | Emergency (ER) | payer BC ==
[2022-12-29] MEDS ORDERED: IBUPROFEN 600 MG (MOTRIN) TAB PO STA (20:01)
--- NOTE | 2022-12-29 20:07 | ED Upper Extremity ---
General Chief Complaint: Upper Extremity Stated Complaint: R SHOULDER PAIN Nursing Triage Note: Pt complaining of right shoulder pain. Pt states she lifted a bag of dog food and thinks she dislocated it Source: patient History of Present Illness Date Seen by Provider: Dec 29, 2022 Time Seen by Provider: 19:53 Initial Comments 22 yo female presenting with complaint of pain to right shoulder since lifting heavy bag of dog food a few hours [employer]. She was worried that she dislocated her caused a problem with her shoulder. She has pain primarily over the trapezius area and the clavicle. She has pain with range of motion of the right shoulder. She denies any numbness or tingling. She has not taken anything for the pain. She thought that it would just get better but since it was not significantly improved over the last few hours she came to the emergency department to be evaluated. She states that she does periodically have some pain and discomfort in her shoulders and feels like they crack and pop at night when she is sleeping. She feels like the shoulders go in and out of joint while she is sleeping. 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 She takes Latuda but otherwise denies any prescription medicines and no allergies to medications. Pain is 6 or 7 out of 10 at its worst but sitting in the emergency department right now it is a 3 or 4. worse pain with movement and palpation Onset: this evening Severity: moderate Pain/Injury Location: right shoulder Method of Injury: other (lifting heavy bag of dog food) Modifying Factors: Worse With Movement Allergies and Home Medications Allergies Coded Allergies: No Known Drug Allergies (Unverified , 06/22/22) Patient Home Medication List Home Medication List Reviewed: Yes No Active Prescriptions or Reported Meds Review of Systems Constitutional: No chills, No fever EENTM: No no symptoms reported Respiratory: no symptoms reported Cardiovascular: no symptoms reported Gastrointestinal: no symptoms reported Genitourinary: no symptoms reported Musculoskeletal: see HPI Skin: No change in color Psychiatric/Neurological: Denies Numbness, Denies Paresthesia Past Wpnsagw-Ahsnxw-Ielrxd Hx Patient Social History Tobacco Use?: No Use of E-Cig and/or Vaping dev: No Substance use?: No Alcohol Use?: No Pt feels they are or have been: No Immunizations Up To Date First/Initial COVID19 Vaccinat: Unvaccinated Past Medical History Surgery/Hospitalization HX: asthma, heart murmur, Nexplanon insert and removal, Menorrhagia Surgeries: No Physical Exam Vital Signs Vital Signs - First Documented 12/29/22 19:53 Temp 36.8 Pulse 81 Resp 16 B/P (MAP) 111/77 (88) Pulse Ox 99 O2 Delivery Room Air Capillary Refill : Less Than 3 Seconds Height, Weight, BMI Height: '" Weight: lbs. oz. kg; 20.00 BMI Method: General Appearance: WD/WN, no apparent distress Cardiovascular: normal peripheral pulses Shoulder: normal ROM; No deformity, No ecchymosis; pain, soft tissue tenderness (tender to palpation over trapezius muscle on right side and right clavicle) Elbow/Forearm: normal inspection, non-tender, no evidence of injury Wrist: Yes normal inspection, Yes non-tender, Yes no evidence of injury Hand: normal inspection, non-tender, no evidence of injury Neurologic/Tendon: normal sensation, normal motor functions, normal tendon functions Neurologic/Psychiatric: mechanic II-XII nml as tested, no motor/sensory deficits, alert, normal mood/affect, oriented x 3 Skin: normal color, warm/dry Progress/Results/Core Measures Results/Orders My Orders Orders - ANDREW MAHMOOD MD Ice: Apply To Affected Area (12/29/22 20:01) Shoulder 3 View Right (12/29/22 20:01) Ibuprofen Tablet (Motrin Tablet) (12/29/22 20:01) Orthopedic Equiment (12/29/22 20:21) Ed Ortho/Other Supplies Order (12/29/22 20:21) Vital Signs/I&O 12/29/22 12/29/22 19:53 20:26 Temp 36.8 36.8 Pulse 81 81 Resp 16 16 B/P (MAP) 111/77 (88) 111/77 Pulse Ox 99 99 O2 Delivery Room Air Room Air Blood Pressure Mean: 88 Progress Progress Note #1: Progress Note Potential diagnosis of shoulder strain, shoulder dislocation, AC separation, rot ator cuff injury. Apply ice to help with pain and inflammation. Administer ibuprofen 600 mg p.o. x1 to help with pain and inflammation. Obtain x-rays of the right shoulder to look for acute bony injury. Progress Note #2: Time: 20:14 Progress Note On my personal interpretation and review of the three-view films of the right shoulder did not appreciate any acute fracture or dislocation. Will discuss symptomatic care with the patient and advised to use ice and anti- inflammatories. Try to limit heavy lifting with the right arm and if symptoms persist or worsen then she may also need to see orthopedics or follow-up with the [facility] clinic for MRI or further evaluation of her rotator cuff. Sling to rest right shoulder and arm for 2-3 days. Continue with ibuprofen 600 mg every 8 hours as needed for pain and inflammation Diagnostic Imaging Diagonstic Imaging: Xray Plain Films/CT/US/NM/MRI: other (Right shoulder) Comments [facility]. [place], [place] NAME: KUN IBARRA [facility] REC#: [id number] PT STATUS: DEP ER : 2000 PHYSICIAN: ANDREW MAHMOOD MD ADMIT DATE: 12/29/22/ER FS Signed Date of Exam:12/29/22 SHOULDER 3 VIEW RIGHT HISTORY: Right shoulder pain. TECHNIQUE: 3 views of the right shoulder. COMPARISON: None. FINDINGS: No acute fracture or dislocation is seen in the right shoulder. Alignment is normal and joint spaces are preserved. IMPRESSION: No acute osseous abnormality is seen in the right shoulder. Dictated by: Dictated on workstation # [id number] Dict: 12/29/222041 Trans: 12/29/222127 E [id number] Interpreted by: JULY CROSS MD Electronically signed by: JULY CROSS MD 12/29/222127 Reviewed: Reviewed by Me Departure Impression Primary Impression: Muscle strain of right shoulder region Qualified Codes: S46.911A - Strain of unspecified muscle, fascia and tendon at shoulder and upper arm level, right arm, initial encounter Disposition: 01 HOME, SELF-CARE Condition: Stable Departure-Patient Inst. Decision time for Depature: 20:21 Referrals: BRUCE OSBORNE ANNA K APRN (PCP) Primary Care Physician JEOVANY YEE MD [facility] Patient Instructions: Muscle Strain ED, Shoulder Pain ED, Using Cold for Pain, Shoulder Sprain ED, How to Use a Shoulder Sling ED Add. Discharge Instructions: Try to avoid lifting more than 10-15 pounds with the right arm for the next week. Use the shoulder sling for next 2-3 days to help limit use of the right arm/shoulder. After 3 days you should not be using the sling any more because using it for too long will make your shoulder joint freeze up and get more stiff and painful than to help it. Apply ice 15-20 minutes every few hours as needed to help with pain and inflammation. May take Ibuprofen 600 mg every 8 hours as needed for pain and inflammation. If symptoms worsen instead of improving over the next week check with [facility] or Orthopedics for further evaluation. Occasionally you will need an MRI to check your rotator cuff. Sometimes they will set you up with physical therapy to help strengthen the shoulder and improve the pain if it is persisting. All discharge instructions reviewed with patient and/or family. Voiced understanding. Scripts No Active Prescriptions or Reported Meds Work/School Note: Work Release Form Date Seen in the Emergency Department: Dec 29, 2022 Return to Work: Dec 30, 2022 Restrictions: No Sports-Until Released Other Restrictions Listed Below: Limit use of right arm/shoulder. No lifting >15 pounds x 1 week ANDREW MAHMOOD MD Dec 29, 2022 20:07
[2022-12-29 20:26] VITALS: BP 111/77
--- NOTE | 2022-12-29 20:45 | Diagnostic Imaging Report ---
HISTORY: Right shoulder pain. TECHNIQUE: 3 views of the right shoulder. COMPARISON: None. FINDINGS: No acute fracture or dislocation is seen in the right shoulder. Alignment is normal and joint spaces are preserved. IMPRESSION: No acute osseous abnormality is seen in the right shoulder. Dictated by: Dictated on workstation # [id number]
== END 2022-12-29 20:26 | disposition home or self-care (01) ==
LOC: EDUNIT# 19:50 → ER FS 19:53
DX: S46.911A Strain of unspecified muscle, fascia and tendon at shoulder and upper arm level, right arm, initial encounter (principal); Z28.310 Unvaccinated for COVID-19; X50.0XXA Overexertion from strenuous movement or load, initial encounter
CPT/HCPCS: 73030